=== PATIENT | male | born 1950 | race Caucasian/White ===

== ENCOUNTER 2017-08-28 04:16 | Emergency (ER) | payer MEDICARE, BC, OTHER ==
[2017-08-28] MEDS ORDERED: ONDANSETRON 4 MG/2 ML VIAL IVP STA (04:49)
[2017-08-28] MEDS ORDERED: MECLIZINE 12.5 MG TAB PO STA (05:07)
--- NOTE | 2017-08-28 05:15 | ED ---
Dizziness HPI - General Chief Complaint: Dizziness Stated Complaint: Dizzy, nausea Time Seen by Provider: 08/28/17 04:47 Source: patient Mode of arrival: ambulatory Limitations: no limitations - History of Present Illness MD Complaint: dizziness Onset/Timin -: days(s) Timing: gradual onset Description: "room spinning" History of Same: Yes History of Trauma: No Severity: moderate Improves With: nothing Worsens With: nothing Associated Symptoms: other (Nausea and vomiting) - Related Data Home Medications Medication Instructions Recorded Confirmed Calcium Carbonate/Vitamin D3 1 tab PO DAILY 09/04/14 02/24/16 [Calcium 600 + Vit D Tablet] Multivitamin [Men's Multi-Vitamin] 1 tab PO DAILY 09/04/14 02/24/16 Hyoscyamine Sulfate [Hyoscyamine 0.125 mg SL Q3-4H PRN 02/15/15 02/24/16 Sulfate SL] Melatonin 3 mg PO HS PRN 02/17/16 02/24/16 Timolol 0.5% Ophth Soln [Timoptic 1 drop BOTH EYES DAILY 02/17/16 02/24/16 0.5% Ophth Soln] Allergies Allergy/AdvReac Type Severity Reaction Status Date / Time smallpox vaccine,live Allergy Unknown Unknown Verified 08/28/17 04:21 Review of Systems ROS Statement: Those systems with pertinent positive or pertinent negative responses have been documented in the HPI. ROS Other: All systems not noted in ROS Statement are negative. Constitutional: Denies: fever, chills, weakness Eyes: Denies: vision change ENT: Reports: other (Patient states that it feels like his ear is plugged). Denies: hearing loss Respiratory: Denies: cough, dyspnea Cardiovascular: Denies: chest pain, palpitations, orthopnea, edema, syncope Gastrointestinal: Reports: nausea, vomiting. Denies: abdominal pain, hematemesis, melena, hematochezia Genitourinary: Denies: dysuria Musculoskeletal: Denies: back pain Skin: Denies: rash, change in color Neurological: Denies: headache, weakness Past Medical History Past Medical History: GERD/Reflux Additional Past Medical History / Comment(s): VARICOSE VEIN, STATES ELEVATED EYE PRESSURE, OCCASIONAL FUNGUS ON THIGH, HX OF ECZEMA, HAVING ABDOMINAL PAIN., TINNITIS. History of Any Multi-Drug Resistant Organisms: None Reported Past Surgical History: Appendectomy Additional Past Surgical History / Comment(s): biopsy Left axillary lymph node- cat scratch fever Past Anesthesia/Blood Transfusion Reactions: No Reported Reaction Past Psychological History: No Psychological Hx Reported Smoking Status: Former smoker Past Alcohol Use History: None Reported Past Drug Use History: None Reported - Past Family History Father Family Medical History: Unable to Obtain Mother Family Medical History: Cancer Additional Family Medical History / Comment(s): BREAST CANCER WITH METS. General Exam Limitations: no limitations General appearance: alert, in no apparent distress Head exam: Present: atraumatic, normocephalic Eye exam: Present: normal appearance, PERRL, EOMI. Absent: scleral icterus, conjunctival injection ENT exam: Present: normal oropharynx, TM's normal bilaterally, normal external ear exam Neck exam: Present: normal inspection Respiratory exam: Present: normal lung sounds bilaterally. Absent: respiratory distress, wheezes, rales, rhonchi, stridor Cardiovascular Exam: Present: normal rhythm, bradycardia (Rate approximately 56 at my exam), normal heart sounds. Absent: systolic murmur, diastolic murmur, rubs, gallop GI/Abdominal exam: Present: soft. Absent: distended, tenderness, guarding, rebound, rigid, mass, pulsatile mass Extremities exam: Present: normal inspection, normal capillary refill. Absent: pedal edema, calf tenderness Back exam: Present: normal inspection. Absent: CVA tenderness (R), CVA tenderness (L) Neurological exam: Present: alert Skin exam: Present: warm, dry, intact, normal color. Absent: rash Course Vital Signs 08/28/17 08/28/17 04:18 05:57 Temperature 97.7 F Pulse Rate 54 L 48 L Respiratory 20 17 Rate Blood Pressure 125/76 122/58 O2 Sat by Pulse 100 100 Oximetry EKG Findings - EKG Results: EKG: interpreted by ERMD, sinus rhythm, normal QRS, normal ST/T EKG shows: bradycardia (Rate 54 bpm) - Blocks, [place], Hypertrophy, ST Abn: QRS axis and voltage: left axis deviation (-30 to -90) Medical Decision Making - Lab Data Result diagrams: 08/28/17 04:43 08/28/17 04:43 Lab Results 08/28/17 08/28/17 08/28/17 Range/Units 04:43 04:43 04:43 WBC 6.1 (3.8-10.6) k/uL RBC 4.23 L (4.30-5.90) m/uL Hgb 13.7 (13.0-17.5) gm/dL Hct 40.0 (39.0-53.0) % MCV 94.5 (80.0-100.0) fL MCH 32.3 (25.0-35.0) pg MCHC 34.2 (31.0-37.0) g/dL RDW 13.2 (11.5-15.5) % Plt Count 224 (150-450) k/uL Neutrophils % 39 % Lymphocytes % 49 % Monocytes % 6 % Eosinophils % 3 % Basophils % 1 % Neutrophils # 2.4 (1.3-7.7) k/uL Lymphocytes # 3.0 (1.0-4.8) k/uL Monocytes # 0.4 (0-1.0) k/uL Eosinophils # 0.2 (0-0.7) k/uL Basophils # 0.0 (0-0.2) k/uL Sodium 136 L (137-145) mmol/L Potassium 3.9 (3.5-5.1) mmol/L Chloride 104 (98-107) mmol/L Carbon Dioxide 20 L (22-30) mmol/L Anion Gap 12 mmol/L BUN 13 (9-20) mg/dL Creatinine 0.70 (0.66-1.25) mg/dL Est GFR (CKD-EPI)AfAm >90 (>60 ml/min/1.73 sqM) Est GFR (CKD-EPI)NonAf >90 (>60 ml/min/1.73 sqM) Glucose 120 H (74-99) mg/dL Calcium 9.7 (8.4-10.2) mg/dL Total Bilirubin 0.5 (0.2-1.3) mg/dL AST 28 (17-59) U/L ALT 35 (21-72) U/L Alkaline Phosphatase 38 (38-126) U/L Troponin I <0.012 (0.000-0.034) ng/mL Total Protein 6.8 (6.3-8.2) g/dL Albumin 4.3 (3.5-5.0) g/dL Disposition Clinical Impression: Vertigo Disposition: HOME SELF-CARE Condition: Good Instructions: Dizziness (ED) Is patient prescribed a controlled substance at d/c from ED?: No Referrals: Dawit Hendrix MD [Primary Care Provider] - 1-2 days
[2017-08-28 05:38] LABS: Basophils % (A) 1 %; Eosinophils # (A) 0.2 k/uL (0-0.7); Eosinophils % (A) 3 %; HGB 13.7 gm/dL (13.0-17.5); Lymphocytes % (A) 49 %; MCH 32.3 pg (25.0-35.0); MCHC 34.2 g/dL (31.0-37.0); MCV 94.5 fL (80.0-100.0); Mean Platelet Volume 6.7; Monocytes # (A) 0.4 k/uL (0-1.0); Monocytes % (A) 6 %; Neutrophils # (A) 2.4 k/uL (1.3-7.7); Neutrophils % (A) 39 %; Platelet Count 224 k/uL (150-450); RBC 4.23 m/uL (4.30-5.90); RDW 13.2 % (11.5-15.5); WBC 6.1 k/uL (3.8-10.6)
[2017-08-28 05:47] LABS: Carbon Dioxide 20 mmol/L (22-30); Chloride 104 mmol/L (98-107); Glucose 120 mg/dL (74-99); Potassium 3.9 mmol/L (3.5-5.1); Sodium 136 mmol/L (137-145)
[2017-08-28 05:48] LABS: ALT 35 U/L (21-72); AST 28 U/L (17-59); Albumin 4.3 g/dL (3.5-5.0); Alkaline Phosphatase 38 U/L (38-126); Anion Gap 12 mmol/L; Blood Urea Nitrogen 13 mg/dL (9-20); Calcium 9.7 mg/dL (8.4-10.2); Total Bilirubin 0.5 mg/dL (0.2-1.3); Total Protein 6.8 g/dL (6.3-8.2)
--- NOTE | 2017-08-28 07:15 | CT ---
EXAM: CT Head Without Intravenous Contrast CLINICAL HISTORY: Pain TECHNIQUE: Axial computed tomography images of the head/brain without intravenous contrast. CTDI is 59.43 mGy and DLP is 1149.96 mGy-cm. This CT exam was performed using one or more of the following dose reduction techniques: automated exposure control, adjustment of the mA and/or kV according to patient size, and/or use of iterative reconstruction technique. COMPARISON: No relevant prior studies available. FINDINGS: Brain: Minimal cerebral involutional changes noted. No hemorrhage. No significant white matter disease. Ventricles: Unremarkable. No ventriculomegaly. Bones/joints: Unremarkable. No acute fracture. Soft tissues: Unremarkable. Sinuses: Unremarkable as visualized. No acute sinusitis. Mastoid air cells: Unremarkable as visualized. No mastoid effusion. IMPRESSION: No acute intracranial process identified.
--- NOTE | 2017-08-28 07:42 | ED ---
Medical Decision Making - Lab Data Result diagrams: 08/28/17 04:43 08/28/17 04:43 Lab Results 08/28/17 08/28/17 08/28/17 Range/Units 04:43 04:43 04:43 WBC 6.1 (3.8-10.6) k/uL RBC 4.23 L (4.30-5.90) m/uL Hgb 13.7 (13.0-17.5) gm/dL Hct 40.0 (39.0-53.0) % MCV 94.5 (80.0-100.0) fL MCH 32.3 (25.0-35.0) pg MCHC 34.2 (31.0-37.0) g/dL RDW 13.2 (11.5-15.5) % Plt Count 224 (150-450) k/uL Neutrophils % 39 % Lymphocytes % 49 % Monocytes % 6 % Eosinophils % 3 % Basophils % 1 % Neutrophils # 2.4 (1.3-7.7) k/uL Lymphocytes # 3.0 (1.0-4.8) k/uL Monocytes # 0.4 (0-1.0) k/uL Eosinophils # 0.2 (0-0.7) k/uL Basophils # 0.0 (0-0.2) k/uL Sodium 136 L (137-145) mmol/L Potassium 3.9 (3.5-5.1) mmol/L Chloride 104 (98-107) mmol/L Carbon Dioxide 20 L (22-30) mmol/L Anion Gap 12 mmol/L BUN 13 (9-20) mg/dL Creatinine 0.70 (0.66-1.25) mg/dL Est GFR (CKD-EPI)AfAm >90 (>60 ml/min/1.73 sqM) Est GFR (CKD-EPI)NonAf >90 (>60 ml/min/1.73 sqM) Glucose 120 H (74-99) mg/dL Calcium 9.7 (8.4-10.2) mg/dL Total Bilirubin 0.5 (0.2-1.3) mg/dL AST 28 (17-59) U/L ALT 35 (21-72) U/L Alkaline Phosphatase 38 (38-126) U/L Troponin I <0.012 (0.000-0.034) ng/mL Total Protein 6.8 (6.3-8.2) g/dL Albumin 4.3 (3.5-5.0) g/dL Disposition Clinical Impression: Vertigo Disposition: HOME SELF-CARE Condition: Good Instructions: Dizziness (ED) Prescriptions: Meclizine [Antivert] 25 mg PO TID #20 tab Is patient prescribed a controlled substance at d/c from ED?: No Referrals: Dawit Hendrix MD [Primary Care Provider] - 1-2 days
[2017-08-28 07:50] VITALS: BP 112/65; PULSE 63; RESP 16; TEMP 98
== END 2017-08-28 07:49 | disposition home or self-care (01) ==
LOC: EC 04:16
DX: R42 Dizziness and giddiness (principal); R11.2 Nausea with vomiting, unspecified; Z87.891 Personal history of nicotine dependence; Z79.899 Other long term (current) drug therapy; Z88.7 Allergy status to serum and vaccine
CPT/HCPCS: 36415; 93005; 80053; 84484; 85025; 70450; 99284; 96374; J2405

== ENCOUNTER 2018-02-06 07:11 | Day surgery (SDC) | payer MEDICARE, OTHER, BC ==
[~2018-02-06 07:11] MED LIST: LACTATED RINGERS 1,000 ML IV SCH; LIDOCAINE 1% 20 ML VIAL (10MG/ML) FOR IV START INTRADERMA PRN
[2018-02-06 07:34] VITALS: RESP 16; TEMP 97.8
[2018-02-06] MEDS ORDERED: PROPOFOL 10 MG/ML 20 ML VIAL IV ONE (08:39)
--- NOTE | 2018-02-06 09:15 | P.PCN ---
Date of Procedure: 02/06/18 Procedure(s) Performed: BRIEF HISTORY: Patient is a 67-year-old pleasant male, scheduled for an elective colonoscopy as a part of evaluation of prior history of colon polyps. Last endoscopy in January 2016 showed a broad-based polyp on the ileocecal valve was removed by snare polypectomy/APC. He scheduled for a surveillance colonoscopy today. PROCEDURE PERFORMED: Colonoscopy with snare polypectomy and argon plasma coagulation. PREOPERATIVE DIAGNOSIS: Follow-up ileocecal valve polyp. IV sedation per Anesthesia. PROCEDURE: After informed consent was obtained, the patient, was brought into the endoscopy unit. IV sedation was administered by Anesthesia under continuous monitoring. Digital rectal examination was normal. Initially the Olympus CF- 160 flexible video colonoscope was then inserted in the rectum, gradually advanced into the cecum without any difficulty. Careful examination was performed as the scope was gradually being withdrawn. Ileocecal valve and the appendiceal orifice were visualized and appeared normal. Prep was excellent. On the ileocecal valve there was a 2 cm flat residual linear polyp identified which was removed by snare polypectomy followed by argon plasma coagulation. Mucosa of the cecum, ascending colon, transverse colon, descending colon, sigmoid colon, and rectum appeared normal. Retroflexion was performed in the rectum and no lesions were seen. The patient tolerated the procedure well. IMPRESSION: 2 cm linear severe flat polyp on the ileocecal valve status post snare polypectomy and argon plasma coagulation Rest of the colon appeared normal. RECOMMENDATIONS: Findings of this examination were discussed with the patient is well as his family. He will follow with the biopsy results and he will be seen in the office in 2 weeks.
[2018-02-06 09:32] VITALS: BP 123/81; PULSE 63
== END 2018-02-06 10:06 | disposition home or self-care (01) ==
LOC: ORWHC2ENDO 07:11
PROVIDERS: ATTEND Internal Medicine Gastroenterology
DX: Z12.11 Encounter for screening for malignant neoplasm of colon (principal); K63.5 Polyp of colon; Z86.010 Personal history of colon polyps; I10 Essential (primary) hypertension; H40.9 Unspecified glaucoma; K21.9 Gastro-esophageal reflux disease without esophagitis; Z79.899 Other long term (current) drug therapy; Z88.7 Allergy status to serum and vaccine
CPT/HCPCS: 88305; 45385; J2704; 45382

== ENCOUNTER → 2019-01-29 | Outpatient (CLI) | payer MEDICARE, OTHER, BC ==
[2019-01-29 11:15] LABS: HCT 42.6 % (39.0-53.0); HGB 14.8 gm/dL (13.0-17.5); MCH 32.8 pg (25.0-35.0); MCHC 34.7 g/dL (31.0-37.0); MCV 94.6 fL (80.0-100.0); Mean Platelet Volume 6.1; Platelet Count 263 k/uL (150-450); RDW 12.5 % (11.5-15.5); WBC 5.2 k/uL (3.8-10.6)
[2019-01-29 11:43] LABS: Potassium 4.1 mmol/L (3.5-5.1)
== END | disposition home or self-care (01) ==
LOC: LABPAT 09:10
PROVIDERS: ATTEND Surgery
DX: Z01.812 Encounter for preprocedural laboratory examination (principal); K63.5 Polyp of colon
CPT/HCPCS: 36415; 80051; 85027; 86850; 86900; 86901; 93005

== ENCOUNTER 2019-02-04 10:31 | Inpatient (IN) | payer MEDICARE, OTHER, BC ==
[2019-01-31 12:47] VITALS: BMI 23.7
[~2019-02-04 10:31] MED LIST changes: +ALVIMOPAN 12 MG CAPSULE PO ONE; +DEXAMETHASONE SOD PHOSPHATE 10 MG/ML 1 ML VIAL IV ONE; -LACTATED RINGERS 1,000 ML IV SCH; +ONDANSETRON 4 MG/2 ML VIAL IVP ONE; +Pre Op ABX Message 1 EACH MISC MISCELLANE ONE; +metroNIDAZOLE-NS PMX 500 MG in SALINE 1 100ML.BAG IVPB ONE
[2019-02-04] MEDS: LACTATED RINGERS 1,000 ML IV SCH (11:27)
--- NOTE | 2019-02-04 11:47 | P.GSHP ---
History of Present Illness H&P Date: 02/04/19 Chief Complaint: Colon polyp Patient here today for elective partial colectomy. Patient well known to our service. Patient was sent to [facility] for endoscopic mucosal resection of a polyp seen at the ileocecal valve. Patient had more than 1 endoscopic resection. Recent repeat colonoscopy showed persistent polypoid formation with induration at the base of the polyp. Biopsies are showing fragments of tubular adenoma. Patient otherwise asymptomatic. History of previous appendectomy. Given the induration and the recurrent nature of this polyp surgical resection was advised by GI. Denies rectal bleeding. Past Medical History Past Medical History: Eye Disorder, GERD/Reflux, Hearing Disorder / Deafness, Hypertension Additional Past Medical History / Comment(s): Varicose Vein. Elevated eye pressure - pre-glaucoma, HX OF Eczema. Tinnitis, Vertigo, meniere's, hx fluid lt ear. Hx Colon polyps. Occ abd pain History of Any Multi-Drug Resistant Organisms: None Reported Past Surgical History: Appendectomy Additional Past Surgical History / Comment(s): biopsy Left axillary lymph node- cat scratch fever. Colonoscopies, EGD. Past Anesthesia/Blood Transfusion Reactions: No Reported Reaction Smoking Status: Former smoker - Past Family History Father Family Medical History: Unable to Obtain Mother Family Medical History: Cancer Additional Family Medical History / Comment(s): BREAST CANCER WITH METS. Medications and Allergies Home Medications Medication Instructions Recorded Confirmed Type Hyoscyamine Sulfate [Hyoscyamine 0.125 mg SL Q4H PRN 02/15/15 02/04/19 History Sulfate SL] Cholecalciferol [Vitamin D3] 5,000 unit PO DAILY 02/04/18 01/31/19 History Latanoprost Ophth [Xalatan 0.005%] 1 drop BOTH EYES HS 02/04/18 02/04/19 History Triamterene/Hydrochlorothiazid 1 tab PO QAM 02/04/18 02/04/19 History [Triamterene-Hctz 37.5-25 mg Tb] Allergies Allergy/AdvReac Type Severity Reaction Status Date / Time smallpox vaccine,live Allergy Unknown Unknown Verified 01/31/19 12:05 Surgical - Exam Vital Signs Temp Pulse Resp BP Pulse Ox 97.9 F 62 18 152/79 99 02/04/19 11:10 02/04/19 11:10 02/04/19 11:10 12/10/19 11:10 02/04/19 11:10 Physical exam: General: Well-developed, well-nourished HEENT: Normocephalic, sclerae nonicteric Abdomen: Nontender, nondistended Extremities: No edema Neuro: Alert and oriented Assessment and Plan (1) Adenomatous colon polyp Narrative/Plan: 68-year-old male with recurrent adenomatous polyp at the ileocecal valve. Cannot rule out underlying malignancy. We'll proceed with laparoscopic da Gemma assisted partial right colectomy. Risks of bleeding infection and leak abscess stricture duodenal and ureteral injury hernia conversion to an open procedure reviewed. He understands and wishes to proceed. Current Visit: Yes Status: Acute Code(s): D12.6 - BENIGN NEOPLASM OF COLON, UNSPECIFIED SNOMED Code(s): 192975069
[2019-02-04] MEDS: fentaNYL (PF) 50 MCG/ML 2 ML AMP IVP ONE ×3 (12:04→17:30)
[2019-02-04] MEDS ORDERED: fentaNYL (PF) 50 MCG/ML 2 ML AMP IVP ONE (12:04)
[2019-02-04] MEDS ORDERED: MIDAZOLAM 2 MG/2 ML VIAL IVP ONE ×2 (12:04)
[2019-02-04] MEDS ORDERED: HEPARIN SODIUM,PORCINE 5,000 UNIT/ML 1 ML VIAL SQ ONE (12:16)
[2019-02-04] MEDS ORDERED: LACTATED RINGERS 1,000 ML IV ONE ×3 (12:48→16:13)
[2019-02-04] MEDS ORDERED: BUPIVACAIN-EPI 0.25%-1:200,000 30 ML VIAL SQ ONE ×2 (12:51→13:07)
--- NOTE | 2019-02-04 13:38 | P.ANPRN ---
Procedure Note - Anesthesia - Nerve Block Performed Bilateral Transversus Abdominis Single Time Out Performed: Yes Date of Procedure: 02/04/19 Procedure Start Time: 12:04 Procedure Stop Time: 12:14 Location of Patient: PreOp Indication: Acute Post-Operative Pain, Requested by Surgeon Sedation Type: Sedate with meaningful contact maintained Preparation: Sterile Prep Position: Supine Catheter: None Needle Types: Pajunk Needle Gauge: 21 Ultrasound used to visualize needle placement: Yes Ultrasound used to observe medication spread: Yes Injectate: Other (see comment) (0.375% ropivacaine + decadron 4mg-- per side) Blood Aspirated: No Pain Paresthesia on Injection Noted: No Resistance on Injection: Normal Image Stored and Saved: Yes Events: Uneventful and Well Tolerated
[2019-02-04] MEDS ORDERED: METOCLOPRAMIDE 5 MG/ML 2 ML VIAL IVP PRN (17:02)
[2019-02-04] MEDS ORDERED: BENZOCAINE/MENTHOL LOZENG 1 EACH LOZENGE MUCOUS MEM PRN (17:02)
[2019-02-04] MEDS ORDERED: ONDANSETRON 4 MG/2 ML VIAL IVP PRN (17:02)
[2019-02-04] MEDS: HYDROmorphone 0.5 MG/0.5 ML SYRINGE IVP PRN ×4 (17:16→18:44)
[2019-02-04 19:39] LABS: Basophils % (A) 0 %; Eosinophils # (A) 0.1 k/uL (0-0.7); Eosinophils % (A) 1 %; HCT 38.5 % (39.0-53.0); HGB 13.4 gm/dL (13.0-17.5); Lymphocytes # (A) 0.5 k/uL (1.0-4.8); Lymphocytes % (A) 4 %; MCH 32.8 pg (25.0-35.0); MCHC 34.7 g/dL (31.0-37.0); MCV 94.4 fL (80.0-100.0); Mean Platelet Volume 7.9; Monocytes # (A) 0.3 k/uL (0-1.0); Monocytes % (A) 3 %; Neutrophils # (A) 10.9 k/uL (1.3-7.7); Neutrophils % (A) 93 %; Platelet Count 250 k/uL (150-450); RBC 4.08 m/uL (4.30-5.90); RDW 12.7 % (11.5-15.5); WBC 11.7 k/uL (3.8-10.6)
[2019-02-04 19:58] LABS: African American GFR (CKD) >90 (>60 ml/min/1.73 sqM); Anion Gap 8 mmol/L; Blood Urea Nitrogen 9 mg/dL (9-20); Carbon Dioxide 27 mmol/L (22-30); Chloride 100 mmol/L (98-107); Glucose 155 mg/dL (74-99); Non-African American GFR(CKD) >90 (>60 ml/min/1.73 sqM); Potassium 3.1 mmol/L (3.5-5.1); Sodium 135 mmol/L (137-145)
[2019-02-04] MEDS ORDERED: Potassium Replacement Protocol 1 EACH MISC MISCELLANE PRN (20:25)
[2019-02-04] MEDS: HYDROmorphone 1 MG/ML 1 ML SYRINGE IVP PRN (21:57)
[2019-02-04] MEDS: POTASSIUM CHLORIDE 10 MEQ in WATER FOR INJECTION 1 100ML.BAG IVPB SCH ×2 (22:02→23:34)
[2019-02-05] MEDS: POTASSIUM CHLORIDE 10 MEQ in WATER FOR INJECTION 1 100ML.BAG IVPB SCH ×2 (01:08→03:03)
[2019-02-05] MEDS: HYDROmorphone 1 MG/ML 1 ML SYRINGE IVP PRN (03:47)
[2019-02-05] MEDS: D5-0.45% NACL WITH KCL 20MEQ/L 1,000 ML IV SCH ×4 (05:22→19:48)
[2019-02-05 07:07] LABS: Basophils % (A) 0 %; Eosinophils # (A) 0.1 k/uL (0-0.7); Eosinophils % (A) 1 %; HCT 36.6 % (39.0-53.0); HGB 12.4 gm/dL (13.0-17.5); Lymphocytes % (A) 9 %; MCH 31.8 pg (25.0-35.0); MCHC 33.8 g/dL (31.0-37.0); Mean Platelet Volume 7.4; Monocytes # (A) 0.7 k/uL (0-1.0); Monocytes % (A) 6 %; Neutrophils # (A) 9.1 k/uL (1.3-7.7); Neutrophils % (A) 83 %; Platelet Count 204 k/uL (150-450); RBC 3.89 m/uL (4.30-5.90); RDW 12.4 % (11.5-15.5)
[2019-02-05 07:17] LABS: African American GFR (CKD) >90 (>60 ml/min/1.73 sqM); Anion Gap 6 mmol/L; Blood Urea Nitrogen 9 mg/dL (9-20); Carbon Dioxide 28 mmol/L (22-30); Chloride 100 mmol/L (98-107); Glucose 154 mg/dL (74-99); Non-African American GFR(CKD) >90 (>60 ml/min/1.73 sqM); Potassium 3.9 mmol/L (3.5-5.1); Sodium 134 mmol/L (137-145)
[2019-02-05] MEDS: ALVIMOPAN 12 MG CAPSULE PO SCH ×3 (07:48→19:49)
[2019-02-05] MEDS: FAMOTIDINE 20 MG/2 ML VIAL IV SCH ×3 (07:48→19:50)
[2019-02-05] MEDS: HEPARIN SODIUM,PORCINE 5,000 UNIT/ML 1 ML VIAL SQ SCH ×4 (07:50→23:59)
[2019-02-05] MEDS: LACTATED RINGERS 1,000 ML IV SCH (07:50)
--- NOTE | 2019-02-05 11:11 | P.PN ---
<Shaniqua Chaidez Vinh - Last Filed: 02/05/19 11:35> Subjective Progress Note Date: 02/05/19 CHIEF COMPLAINT: colon polyp HISTORY OF PRESENT ILLNESS: Patient is s/p laparoscopic partial right colectomy. POD #1. Patient examined at the bedside. He reports abdominal pain is tolerable. Tolerating clear liquid diet. Denies nausea or vomiting. Denies passing flatus. Vital signs stable. He is afebrile. PHYSICAL EXAM: VITAL SIGNS: Reviewed. GENERAL: Well-developed in no acute distress. HEENT: No sclera icterus. Extraocular movements grossly intact. Moist buccal mucosa. Head is atraumatic, normocephalic. ABDOMEN: Soft. Nondistended. Appropriate surgical tenderness. Incision sites clean dry intact. NEUROLOGIC: Alert and oriented. Cranial nerves II through XII grossly intact. ASSESSMENT: 1. Recurrent adenomatous colon polyp PLAN: -Advance diet to full liquid diet. Await bowel function -Pain control -Increase activity as tolerated -IS 10 times an hour -Discontinue ulrich catheter Nurse practitioner note has been reviewed by physician. Signing provider agrees with the documented findings, assessment, and plan of care. Objective - Vital Signs Vital signs: Vital Signs Temp 98.3 F 02/05/19 07:00 Pulse 84 02/05/19 07:00 Resp 18 02/05/19 07:00 BP 117/66 02/05/19 07:00 Pulse Ox 97 02/05/19 09:34 Intake & Output 02/04/19 02/05/19 02/05/19 18:59 06:59 18:59 Intake Total 4000 Output Total 1185 3600 Balance 2815 -3600 Weight 79.379 kg Intake: IV 4000 Output: Urine 1165 3600 Uretheral (Ulrich) 1800 Estimated Blood Loss 20 Other: Voiding Method Indwelling Catheter Indwelling Catheter - Labs CBC & Chem 7: 02/05/19 06:51 02/05/19 06:51 Labs: Abnormal Lab Results - Last 24 Hours (Table) 02/04/19 02/04/19 02/05/19 Range/Units 19:00 19:00 06:51 WBC 11.7 H 11.0 H (3.8-10.6) k/uL RBC 4.08 L 3.89 L (4.30-5.90) m/uL Hgb 12.4 L (13.0-17.5) gm/dL Hct 38.5 L 36.6 L (39.0-53.0) % Neutrophils # 10.9 H 9.1 H (1.3-7.7) k/uL Lymphocytes # 0.5 L (1.0-4.8) k/uL Sodium 135 L (137-145) mmol/L Potassium 3.1 L (3.5-5.1) mmol/L Creatinine 0.63 L (0.66-1.25) mg/dL Glucose 155 H (74-99) mg/dL 02/05/19 Range/Units 06:51 WBC (3.8-10.6) k/uL RBC (4.30-5.90) m/uL Hgb (13.0-17.5) gm/dL Hct (39.0-53.0) % Neutrophils # (1.3-7.7) k/uL Lymphocytes # (1.0-4.8) k/uL Sodium 134 L (137-145) mmol/L Potassium (3.5-5.1) mmol/L Creatinine 0.62 L (0.66-1.25) mg/dL Glucose 154 H (74-99) mg/dL <Brayan Obando - Last Filed: 02/05/19 11:40> Subjective As above. Patient doing well. Pain is well controlled currently. No nausea or vomiting. No flatus or bowel movement. Vitals are stable. White blood cell count 11. Increase diet to full liquids. Ambulate. Remove Ulrich catheter. Objective - Vital Signs Vital signs: Vital Signs Temp 98.3 F 02/05/19 07:00 Pulse 84 02/05/19 07:00 Resp 18 02/05/19 07:00 BP 117/66 02/05/19 07:00 Pulse Ox 97 02/05/19 09:34 Intake & Output 02/04/19 02/05/19 02/05/19 18:59 06:59 18:59 Intake Total 4000 Output Total 1185 3600 Balance 2815 -3600 Weight 79.379 kg Intake: IV 4000 Output: Urine 1165 3600 Uretheral (Ulrich) 1800 Estimated Blood Loss 20 Other: Voiding Method Indwelling Catheter Indwelling Catheter - Labs CBC & Chem 7: 02/05/19 06:51 02/05/19 06:51 Labs: Abnormal Lab Results - Last 24 Hours (Table) 02/04/19 02/04/19 02/05/19 Range/Units 19:00 19:00 06:51 WBC 11.7 H 11.0 H (3.8-10.6) k/uL RBC 4.08 L 3.89 L (4.30-5.90) m/uL Hgb 12.4 L (13.0-17.5) gm/dL Hct 38.5 L 36.6 L (39.0-53.0) % Neutrophils # 10.9 H 9.1 H (1.3-7.7) k/uL Lymphocytes # 0.5 L (1.0-4.8) k/uL Sodium 135 L (137-145) mmol/L Potassium 3.1 L (3.5-5.1) mmol/L Creatinine 0.63 L (0.66-1.25) mg/dL Glucose 155 H (74-99) mg/dL 02/05/19 Range/Units 06:51 WBC (3.8-10.6) k/uL RBC (4.30-5.90) m/uL Hgb (13.0-17.5) gm/dL Hct (39.0-53.0) % Neutrophils # (1.3-7.7) k/uL Lymphocytes # (1.0-4.8) k/uL Sodium 134 L (137-145) mmol/L Potassium (3.5-5.1) mmol/L Creatinine 0.62 L (0.66-1.25) mg/dL Glucose 154 H (74-99) mg/dL Assessment and Plan (1) Adenomatous colon polyp Current Visit: Yes Status: Acute Code(s): D12.6 - BENIGN NEOPLASM OF COLON, UNSPECIFIED SNOMED Code(s): 503963099
--- NOTE | 2019-02-05 11:48 | P.OP ---
Date of Procedure: 02/05/19 Procedure(s) Performed: PREOPERATIVE DIAGNOSIS: Right-sided colon polyp POSTOPERATIVE DIAGNOSIS: Same PROCEDURE: Laparoscopic da Gemma assisted right colectomy with intracorporeal anastomosis SURGEON: Topher EBL: 25 mL ANESTHESIA: General COMPLICATIONS: None OPERATIVE PROCEDURE: Patient was placed on the operating table in the supine position. The patient was placed under general anesthesia. A Mauricio catheter was placed. The patient's arms were tucked. The abdomen was prepped and draped in usual sterile fashion. A small Pfannenstiel incision was created in the midline. The subcutaneous fat and fascia were divided horizontally using electrocautery. The rectus muscle was divided vertically using blunt dissection and entrance into the peritoneal cavity occurred. The [place] lap cap was placed. Through the GelPort adapter of the [place] a 12 mm robotic port and a 12 mm assist port were placed. Full insufflation took place to 15 mmHg. 3 additional trochars were placed for the robot a 12 mm in the left subcostal a 8 mm in the left lateral infraumbilical and a 8 mm trocar in the left lower q uadrant location. An additional 5 mm trocar was placed in the lateral left abdomen for an starch treating assistant port. The patient was placed in Trendelenburg right side up. The liver was free of any evidence of distant metastasis. The retroperitoneum was evaluated. The ileocolic pedicle was identified by retracting the cecum anteriorly and laterally. Careful dissection using both blunt dissection and cautery took place in the retroperitoneum. The duodenum was quickly identified and this was protected throughout the remainder of the procedure. Our dissection took place laterally and circumferentially around the ileocolic pedicle. The ileocolic pedicle was divided using a 45 white load stapler. At the end of the procedure I inspected the ileocolic pedicle to identify a small area of bleeding. This was was controlled using a 12 mm ligaclip. No further bleeding was seen at that point. Retroperitoneal dissection then took place from medial to lateral. The course of the ureter was identified and avoided. Once we reached the lateral abdomen from our retroperitoneal approach the ileum cecum and ascending colon were mobilized by incising the lateral peritoneal attachments. We entered into a retroperitoneal dissection plane. The hepatic flexure was mobilized in a similar fashion although in that location we started using the vessel sealer. It should be noted that in this case the patient's hepatic flexure was quite high and fairly lateral. This added some time to the procedure and trying to mobilize that area. The gastrocolic omentum was dissected away from the proximal transverse colon. Once we were able to visualize the transverse colon and hepatic flexure well the proximal transverse colon was divided using a blue load 45 stapler x2. The mesentery of the transverse colon was then divided using a combination of the vessel sealer and also the white load vascular 45 stapler. The small bowel was divided as well using a robotic blue load stapler. At this point our s pecimen was free and placed in the left upper quadrant. The terminal ileum was brought in an isoperistaltic manner adjacent to the transverse colon. 2 separate 3-0 GI silk stay sutures were placed proximally and distally. Small enterotomy and colotomy took place. At that time stapler was fired along the antimesenteric border of both the small bowel and the colon. 2 separate firings of the 45 blue load stapler were utilized. We had an adequate opening between the small bowel and colon at that point. The defect was closed transversely using a running full-thickness 20V lock suture. Once the defect was closed I used a running horizontal mattress Lambert suture along the length of the staple line in order to imbricate that area. The previously placed 3-0 GI silk sutures acted as stay sutures proximally and distally. The specimen was grasped through the [place] assist port and the pneumoperitoneum was evacuated. The specimen was able to be retrieved quite easily. The fascia was closed using a running 1 Vicryl suture. The 12 mm trocar site fascia was closed using a [id number] 0 Vicryl suture. The subcutaneous tissues were irrigated with saline. The subcutaneous tissues were closed using 3-0 Vicryl sutures. The skin at all locations were closed using 4-0 Monocryl sutures. Dermabond was then utilized. DISPOSITION: Stable to recovery room
[2019-02-05] MEDS: KETOROLAC 30 MG/ML 1 ML VIAL IVP PRN ×2 (12:05→18:42)
--- NOTE | 2019-02-05 13:27 | P.CONS ---
History of Present Illness - Reason for Consult Consult date: 02/05/19 Medical management - History of Present Illness This is a 68-year-old male patient of Dr. Hendrix. with past medical history of hypertension,, Mnire's, gastroesophageal reflux disease. Patient recently seen at [facility] below for endoscopic mucosal resection of a polyp seen at the ileocecal valve. Patient had more than 1 endoscopic resection. Recent repeat colonoscopy showed persistent polypoid formation with induration at the base of the polyp. Biopsies are showing fragments of tubular adenoma. Patient has been brought in electively under Dr. Obando and underwent laparoscopic da Gemma assisted right colectomy with intracorporeal anastomosis. Patient is seen on postop day #1. Patient states that he did not sleep well due to pain and multiple interruptions. He is currently tolerating a liquid diet without nausea and vomiting. Abdominal pain is controlled. His Mauricio catheter was removed this morning. No bowel movement. He is reaching 3000 ML's on incentive spirometry. PT evaluation will be added. Review of Systems Constitutional: Denies chills, Denies fatigue, Denies fever, Denies poor appetite Eyes: denies blurred vision, denies pain Ears, nose, mouth and throat: Denies headache, Denies nasal congestion, Denies nasal discharge, Denies sore throat, Denies vertigo Cardiovascular: Denies chest pain, Denies decreased exercise tolerance, Denies dyspnea on exertion, Denies edema, Denies irregular heart beat, Denies leg edema, Denies lightheadedness, Denies shortness of breath, Denies syncope Respiratory: Denies cough, Denies cough with sputum, Denies dyspnea, Denies excessive sputum, Denies home oxygen, Denies wheezing Gastrointestinal: Reports abdominal pain, Denies diarrhea, Denies loss of appetite, Denies nausea, Denies vomiting Genitourinary: Denies dysuria, Denies urinary retention Musculoskeletal: Denies frequent falls, Denies gait dysfunction, Denies myalgias Integumentary: Denies pruritus, Denies rash Neurological: Denies change in mentation, Denies change in speech, Denies numbness, Denies weakness Psychiatric: Denies anxiety, Denies depression Endocrine: Denies fatigue, Denies weight change Past Medical History Past Medical History: Eye Disorder, GERD/Reflux, Hearing Disorder / Deafness, Hypertension Additional Past Medical History / Comment(s): Varicose Vein. Elevated eye pressure - pre-glaucoma, HX OF Eczema. Tinnitis, Vertigo, meniere's, hx fluid lt ear. Hx Colon polyps. Occ abd pain History of Any Multi-Drug Resistant Organisms: None Reported Past Surgical History: Appendectomy Additional Past Surgical History / Comment(s): biopsy Left axillary lymph node- cat scratch fever. Colonoscopies, EGD. Laparoscopic da Gemma assisted right colectomy Past Anesthesia/Blood Transfusion Reactions: No Reported Reaction Past Psychological History: No Psychological Hx Reported Smoking Status: Former smoker Past Alcohol Use History: None Reported Additional Past Alcohol Use History / Comment(s): QUIT SMOKING APRIL 1986. SMOKED 20 YEARS APPROX 1 PPD. Quit Alcohol 1985 Past Drug Use History: None Reported - Past Family History Father Family Medical History: Unable to Obtain Additional Family Medical History / Comment(s): Father is alive at age 96 with n o major medical problems. Mother Family Medical History: Cancer Additional Family Medical History / Comment(s): Mother at age 80 from BREAS T CANCER WITH METS. Brother(s) Additional Family Medical History / Comment(s): Patient has 1 brother and does not know any of his past medical history. Patient has 2 half-sisters and does not know their medical history. Daughter(s) Additional Family Medical History / Comment(s): Patient has 2 daughters and one has celiac disease, one has anxiety and gastroesophageal reflux disease. Patient does not have any sons. Medications and Allergies Home Medications Medication Instructions Recorded Confirmed Type Hyoscyamine Sulfate [Hyoscyamine 0.125 mg SL Q4H PRN 02/15/15 02/04/19 History Sulfate SL] Cholecalciferol [Vitamin D3] 5,000 unit PO DAILY 02/04/18 01/31/19 History Latanoprost Ophth [Xalatan 0.005%] 1 drop BOTH EYES HS 02/04/18 02/04/19 History Triamterene/Hydrochlorothiazid 1 tab PO QAM 02/04/18 02/04/19 History [Triamterene-Hctz 37.5-25 mg Tb] Allergies Allergy/AdvReac Type Severity Reaction Status Date / Time smallpox vaccine,live Allergy Unknown Unknown Verified 01/31/19 12:05 Physical Exam Vitals: Vital Signs Temp Pulse Pulse Resp BP Pulse Ox 02/05/19 09:34 97 02/05/19 07:00 98.3 F 84 18 117/66 96 02/05/19 01:43 98.4 F 97 18 139/79 97 02/04/19 21:15 92 155/75 98 02/04/19 21:00 91 134/69 97 02/04/19 20:45 89 135/67 97 02/04/19 20:30 87 144/66 97 02/04/19 20:15 97.8 F 93 147/75 96 02/04/19 20:03 98.6 F 99 20 137/81 99 02/04/19 20:00 74 117/62 97 02/04/19 19:45 78 113/63 98 02/04/19 19:30 84 97 02/04/19 19:15 98.0 F 83 17 117/63 99 02/04/19 18:31 74 16 138/68 96 02/04/19 18:01 77 18 141/68 98 02/04/19 17:46 86 16 156/72 97 02/04/19 17:31 76 18 140/65 96 02/04/19 17:16 98 18 147/77 99 02/04/19 17:01 82 16 137/72 99 02/04/19 16:45 98.1 F 93 15 137/72 98 02/04/19 11:10 97.9 F 62 18 152/79 99 Intake and Output 02/04/19 02/05/19 02/05/19 22:59 06:59 14:59 Intake Total 1950 Output Total 1185 Balance 765 Intake: IV 1950 Output: Urine 1165 Estimated Blood Loss 20 Other: Voiding Method Indwelling Catheter Weight 79.379 kg Gen: This is a 68-year-old male. Patient is resting in bed and appears to be comfortable and in no acute distress. HEENT: Head is atraumatic, normocephalic. Pupils equal, round. Sclerae is anicteric. NECK: Supple. No JVD. No lymphadenopathy. No thyromegaly. LUNGS: Clear to auscultation. No wheezes or rhonchi. No intercostal retractions. HEART: Regular rate and rhythm. No murmur. ABDOMEN: Soft. Bowel sounds are present. No masses. Mild generalized tenderness. Small surgical wounds with no signs of infection. EXTREMITIES: No pedal edema. No calf tenderness. Dorsalis pedis +2 bilaterally. NEUROLOGICAL: Patient is awake, alert and oriented x3. Cranial nerves 2 through 12 are grossly intact. Results CBC & Chem 7: 02/05/19 06:51 02/05/19 06:51 Labs: Abnormal Lab Results - Last 24 Hours (Table) 02/04/19 02/04/19 02/05/19 Range/Units 19:00 19:00 06:51 WBC 11.7 H 11.0 H (3.8-10.6) k/uL RBC 4.08 L 3.89 L (4.30-5.90) m/uL Hgb 12.4 L (13.0-17.5) gm/dL Hct 38.5 L 36.6 L (39.0-53.0) % Neutrophils # 10.9 H 9.1 H (1.3-7.7) k/uL Lymphocytes # 0.5 L (1.0-4.8) k/uL Sodium 135 L (137-145) mmol/L Potassium 3.1 L (3.5-5.1) mmol/L Creatinine 0.63 L (0.66-1.25) mg/dL Glucose 155 H (74-99) mg/dL 02/05/19 Range/Units 06:51 WBC (3.8-10.6) k/uL RBC (4.30-5.90) m/uL Hgb (13.0-17.5) gm/dL Hct (39.0-53.0) % Neutrophils # (1.3-7.7) k/uL Lymphocytes # (1.0-4.8) k/uL Sodium 134 L (137-145) mmol/L Potassium (3.5-5.1) mmol/L Creatinine 0.62 L (0.66-1.25) mg/dL Glucose 154 H (74-99) mg/dL Assessment and Plan Plan: 1. Tubular adenoma status post laparoscopic da Gemma assisted right colectomy with intracorporeal anastomosis. Patient is certainly on a clear liquid diet. Continue incentive spirometry to reduce incidence of atelectasis and hospital- acquired pneumonia. Patient is on Entereg. 2. Hypertension. Resume Maxide 25 tomorrow with parameters. 3. Mnire's, stable. 4. Gastroesophageal reflux disease. Pepcid 20 mg IV twice daily. 5. Glaucoma. Continue eyedrops. 6. DVT prophylaxis. Heparin subcu. Discharge plan: Most likely return home on Sunday. PT will be added to assess for home care need. Impression and plan of care have been directed as dictated by the signing physician. Nerissa Moreno nurse practitioner acting as scribe for signing physician.
[2019-02-05] MEDS: LATANOPROST 0.005% OPHTH DROPS 2.5 ML BTL BOTH EYES SCH (19:50)
[2019-02-06] MEDS: KETOROLAC 30 MG/ML 1 ML VIAL IVP PRN ×3 (03:06→21:12)
[2019-02-06] MEDS: D5-0.45% NACL WITH KCL 20MEQ/L 1,000 ML IV SCH ×4 (03:06→23:31)
[2019-02-06] MEDS: LACTATED RINGERS 1,000 ML IV SCH (07:11)
[2019-02-06] MEDS: HEPARIN SODIUM,PORCINE 5,000 UNIT/ML 1 ML VIAL SQ SCH ×3 (09:03→23:31)
[2019-02-06] MEDS: ALVIMOPAN 12 MG CAPSULE PO SCH ×2 (09:03→21:17)
[2019-02-06] MEDS: TRIAMTERENE-HCTZ 37.5-25MG 1 EACH TAB PO SCH (09:03)
[2019-02-06] MEDS: FAMOTIDINE 20 MG/2 ML VIAL IV SCH ×2 (09:03→21:12)
--- NOTE | 2019-02-06 11:39 | P.PN ---
<Shaniqua Chaidez - Last Filed: 02/06/19 11:34> Subjective Progress Note Date: 02/06/19 CHIEF COMPLAINT: colon polyp HISTORY OF PRESENT ILLNESS: Patient is s/p laparoscopic partial right colectomy. POD #2. Patient examined at the bedside. He reports abdominal pain is tolerable. Tolerating full liquid diet. Denies nausea or vomiting. Reports passing minimal flatus. Has been ambulating in the hallway. Vital signs stable. He is afebrile. PHYSICAL EXAM: VITAL SIGNS: Reviewed. GENERAL: Well-developed in no acute distress. HEENT: No sclera icterus. Extraocular movements grossly intact. Moist buccal mucosa. Head is atraumatic, normocephalic. ABDOMEN: Soft. Nondistended. Appropriate surgical tenderness. Incision sites clean dry intact. NEUROLOGIC: Alert and oriented. Cranial nerves II through XII grossly intact. ASSESSMENT: 1. Recurrent adenomatous colon polyp PLAN: -Advance diet to full liquid diet. Await bowel function -Pain control -Increase activity as tolerated -IS 10 times an hour Nurse practitioner note has been reviewed by physician. Signing provider agrees with the documented findings, assessment, and plan of care. Objective - Vital Signs Vital signs: Vital Signs Temp 98.9 F 02/06/19 07:00 Pulse 71 02/06/19 08:55 Resp 16 02/06/19 07:00 BP 129/79 02/06/19 08:55 Pulse Ox 97 02/06/19 07:00 Intake & Output 02/05/19 02/06/19 02/06/19 18:59 06:59 18:59 Intake Total 1000 1740 Output Total 4050 900 800 Balance -3050 840 -800 Intake: Intake, IV Titration 1000 1500 Amount D5-0.45% NaCl with KCl 1000 1500 20Meq/l 1,000 ml @ 125 mls/hr IV .Q8H [facility] Rx#: [id number] Oral 240 Output: Urine 4050 900 800 Uretheral (Mauricio) 1800 Other: Voiding Method Indwelling Catheter Toilet Toilet Urinal Urinal # Voids 2 200 - Labs CBC & Chem 7: 02/05/19 06:51 02/05/19 06:51 <Brayan Obando - Last Filed: 02/06/19 15:30> Subjective As above. Patient doing well. Continue advancing diet. Plan discharge tomorrow. Objective - Vital Signs Vital signs: Vital Signs Temp 98.4 F 02/06/19 14:34 Pulse 64 02/06/19 14:34 Resp 15 02/06/19 14:34 BP 138/76 02/06/19 14:34 Pulse Ox 97 02/06/19 14:34 Intake & Output 02/05/19 02/06/19 02/06/19 18:59 06:59 18:59 Intake Total 1000 1740 Output Total 4050 900 800 Balance -3050 840 -800 Weight 79.379 kg Intake: Intake, IV Titration 1000 1500 Amount D5-0.45% NaCl with KCl 1000 1500 20Meq/l 1,000 ml @ 125 mls/hr IV .Q8H [facility] Rx#: [id number] Oral 240 Output: Urine 4050 900 800 Uretheral (Mauricio) 1800 Other: Voiding Method Indwelling Catheter Toilet Toilet Urinal Urinal # Voids 2 200 - Labs CBC & Chem 7: 02/05/19 06:51 02/05/19 06:51 Assessment and Plan (1) Adenomatous colon polyp Current Visit: Yes Status: Acute Code(s): D12.6 - BENIGN NEOPLASM OF COLON, UNSPECIFIED SNOMED Code(s): 144113834
--- NOTE | 2019-02-06 12:52 | P.PN ---
Subjective Progress Note Date: 02/06/19 This is a 68-year-old male patient of Dr. Hendrix. with past medical history of hypertension,, Mnire's, gastroesophageal reflux disease. Patient recently seen at [facility] below for endoscopic mucosal resection of a polyp seen at the ileocecal valve. Patient had more than 1 endoscopic resection. Recent repeat colonoscopy showed persistent polypoid formation with induration at the base of the polyp. Biopsies are showing fragments of tubular adenoma. Patient has been brought in electively under Dr. Obando and underwent laparoscopic da Gemma assisted right colectomy with intracorporeal anastomosis. Patient is seen on postop day #1. Patient states that he did not sleep well due to pain and multiple interruptions. He is currently tolerating a liquid diet without nausea and vomiting. Abdominal pain is controlled. His Mauricio catheter was removed this morning. No bowel movement. He is reaching 3000 ML's on incentive spirometry. PT evaluation will be added. 02/06: The patient is today sitting in recliner and appears to be comfortable. Patient states that his pain is okay at this time. He has not had a bowel movement. Patient was up in the middle of the night urinating multiple times. No burning with urination. Patient is tolerating a full liquid diet. No nausea or vomiting. He is passing gas. Patient has been afebrile, heart rate 71, blood pressure 129/79, pulse ox 97% on room air Pathology report remains pending. Plan is to increase activity, continue incentive spirometry, diet has been advanced to full liquid diet. PT has recommended home with no requirement for home care. Review of Systems Constitutional: Denies chills, Denies fatigue, Denies fever, Denies poor appetite Eyes: denies blurred vision, denies pain Ears, nose, mouth and throat: Denies headache, Denies nasal congestion, Denies nasal discharge, Denies sore throat, Denies vertigo Cardiovascular: Denies chest pain, Denies decreased exercise tolerance, Denies dyspnea on exertion, Denies edema, Denies irregular heart beat, Denies leg edema, Denies lightheadedness, Denies shortness of breath, Denies syncope Respiratory: Denies cough, Denies cough with sputum, Denies dyspnea, Denies excessive sputum, Denies home oxygen, Denies wheezing Gastrointestinal: Reports abdominal discomfort, Denies diarrhea, Denies loss of appetite, Denies nausea, Denies vomiting Genitourinary: Denies dysuria, Denies urinary retention Musculoskeletal: Denies frequent falls, Denies gait dysfunction, Denies myalgias Integumentary: Denies pruritus, Denies rash Neurological: Denies change in mentation, Denies change in speech, Denies numbness, Denies weakness Psychiatric: Denies anxiety, Denies depression Endocrine: Denies fatigue, Denies weight change Objective - Vital Signs Vital signs: Vital Signs Temp 98.9 F 02/06/19 07:00 Pulse 71 02/06/19 08:55 Resp 16 02/06/19 07:00 BP 129/79 02/06/19 08:55 Pulse Ox 97 02/06/19 07:00 Intake & Output 02/05/19 02/06/19 02/06/19 18:59 06:59 18:59 Intake Total 1000 1740 Output Total 4050 900 Balance -3050 840 Intake: Intake, IV Titration 1000 1500 Amount D5-0.45% NaCl with KCl 1000 1500 20Meq/l 1,000 ml @ 125 mls/hr IV .Q8H [facility] Rx#: [id number] Oral 240 Output: Urine 4050 900 Uretheral (Mauricio) 1800 Other: Voiding Method Indwelling Catheter Toilet Toilet Urinal Urinal # Voids 2 200 - Exam Gen: This is a 68-year-old male. Patient is resting in recliner and appears to be comfortable and in no acute distress. HEENT: Head is atraumatic, normocephalic. Pupils equal, round. Sclerae is anicteric. NECK: Supple. No JVD. No lymphadenopathy. No thyromegaly. LUNGS: Clear to auscultation. No wheezes or rhonchi. No intercostal retractions. HEART: Regular rate and rhythm. No murmur. ABDOMEN: Soft. Bowel sounds are present. No masses. Mild generalized tenderness. Small surgical wounds with no signs of infection. EXTREMITIES: No pedal edema. No calf tenderness. Dorsalis pedis +2 bilaterally . NEUROLOGICAL: Patient is awake, alert and oriented x3. Cranial nerves 2 through 12 are grossly intact. - Labs CBC & Chem 7: 02/05/19 06:51 02/05/19 06:51 Assessment and Plan Plan: 1. Tubular adenoma status post laparoscopic da Gemma assisted right colectomy with intracorporeal anastomosis. Diet advanced to full liquid today. Continue incentive spirometry to reduce incidence of atelectasis and hospital-acquired pneumonia. Patient is on Entereg. Increase activity. 2. Hypertension. Resume Maxide 25 with parameters. 3. Mnire's, stable. 4. Gastroesophageal reflux disease. Pepcid 20 mg IV twice daily. 5. Glaucoma. Continue eyedrops. 6. DVT prophylaxis. Heparin subcu. Discharge plan: Most likely return home on Sunday. Impression and plan of care have been directed as dictated by the signing physician. Nerissa Moreno nurse practitioner acting as scribe for signing physician.
[2019-02-06] MEDS: LATANOPROST 0.005% OPHTH DROPS 2.5 ML BTL BOTH EYES SCH (21:11)
[2019-02-06 21:47] VITALS: RESP 18
[2019-02-07 07:18] LABS: Basophils % (A) 0 %; Eosinophils # (A) 0.2 k/uL (0-0.7); Eosinophils % (A) 2 %; HCT 36.5 % (39.0-53.0); HGB 12.5 gm/dL (13.0-17.5); Lymphocytes # (A) 2.6 k/uL (1.0-4.8); Lymphocytes % (A) 31 %; MCH 32.2 pg (25.0-35.0); MCHC 34.2 g/dL (31.0-37.0); MCV 94.2 fL (80.0-100.0); Mean Platelet Volume 7.3; Monocytes # (A) 0.5 k/uL (0-1.0); Monocytes % (A) 6 %; Neutrophils # (A) 4.9 k/uL (1.3-7.7); Neutrophils % (A) 59 %; Platelet Count 213 k/uL (150-450); RBC 3.87 m/uL (4.30-5.90); RDW 12.5 % (11.5-15.5); WBC 8.4 k/uL (3.8-10.6)
[2019-02-07 08:07] VITALS: BP 125/80; PULSE 88; TEMP 98.3
[2019-02-07] MEDS: LACTATED RINGERS 1,000 ML IV SCH (08:45)
[2019-02-07] MEDS: TRIAMTERENE-HCTZ 37.5-25MG 1 EACH TAB PO SCH (08:48)
[2019-02-07] MEDS: D5-0.45% NACL WITH KCL 20MEQ/L 1,000 ML IV SCH (08:49)
[2019-02-07] MEDS: FAMOTIDINE 20 MG/2 ML VIAL IV SCH (08:49)
[2019-02-07] MEDS: HEPARIN SODIUM,PORCINE 5,000 UNIT/ML 1 ML VIAL SQ SCH (08:49)
--- NOTE | 2019-02-07 12:05 | P.DS ---
<Shaniqua Chaidez - Last Filed: 02/07/19 12:04> Providers Expected date of discharge: 02/07/19 Hospital Course: 68-year-old male who underwent laparoscopic partial right colectomy with Dr. Obando. Patient is doing well postoperatively without any immediate complications. Pain controlled on oral medications. Tolerating diet without nausea or vomiting. Vital signs stable. He is stable for discharge home today. Please see EMR for further hospital course details. discharge diagnosis: 1. Recurrent adenomatous colon polyp Nurse practitioner note has been reviewed by physician. Signing provider agrees with the documented findings, assessment, and plan of care. Plan - Discharge Summary Discharge Rx Participant: Yes New Discharge Prescriptions: New Hydrocodone/Acetaminophen [[place] 5-325] 1 tab PO Q6HR PRN 3 Days #12 tab PRN Reason: Pain No Action Hyoscyamine Sulfate [Hyoscyamine Sulfate SL] 0.125 mg SL Q4H PRN PRN Reason: Pain Latanoprost Ophth [Xalatan 0.005%] 1 drop BOTH EYES HS Triamterene/Hydrochlorothiazid [Triamterene-Hctz 37.5-25 mg Tb] 1 tab PO QAM Cholecalciferol [Vitamin D3] 5,000 unit PO DAILY Discharge Medication List Hyoscyamine Sulfate [Hyoscyamine Sulfate SL] 0.125 mg SL Q4H PRN 02/15/15 [History] Cholecalciferol [Vitamin D3] 5,000 unit PO DAILY 02/04/18 [History] Latanoprost Ophth [Xalatan 0.005%] 1 drop BOTH EYES HS 02/04/18 [History] Triamterene/Hydrochlorothiazid [Triamterene-Hctz 37.5-25 mg Tb] 1 tab PO QAM 02/04/18 [History] Hydrocodone/Acetaminophen [[place] 5-325] 1 tab PO Q6HR PRN 3 Days #12 tab 02/07/19 [Rx] Follow up Appointment(s)/Referral(s): Brayan Obando MD [Medical Doctor] - 02/13/19 9:45 am Dawit Hendrix MD [Primary Care Provider] - 1 Week (Office will be contact with patient upon discharge to set up a follow up appointment) Patient Instructions/Handouts: Colectomy (DC) Activity/Diet/Wound Care/Special Instructions: No driving while taking [place] No lifting over 10 pounds You may shower. No soaking or tub baths Very light activity until you are reevaluated at your follow up appointment with your surgeon Discharge Disposition: HOME SELF-CARE <Brayan Obando - Last Filed: 02/07/19 13:37> Providers Date of admission: 02/04/19 10:31 Attending physician: Brayan Obando Consults: 02/04/19 17:02 Consult Physician Routine Consulting Provider: Dawit Hendrix Consult Reason/Comments: Medical management Do you want consulting provider notified?: Yes Primary care physician: Dawit Hendrix - Discharge Diagnosis(es) (1) Adenomatous colon polyp Current Visit: Yes Status: Acute Hospital Course: As above. Patient doing well. He did have a stool with some old blood in it. Hemoglobin has been stable. Plan discharge today. Follow-up one week.
[2019-02-07] MEDS ORDERED: ROPIVACAINE 5 MG/ML 30 ML VIAL ONE (12:14)
[2019-02-07] MEDS ORDERED: PROPOFOL 10 MG/ML 20 ML VIAL IV ONE (12:14)
[2019-02-07] MEDS ORDERED: fentaNYL (PF) 50 MCG/ML 2 ML AMP ONE (12:14)
[2019-02-07] MEDS ORDERED: HYDROmorphone (PF) 1 MG/ML ONE (12:14)
[2019-02-07] MEDS ORDERED: GLYCOPYRROLATE 0.2 MG/ML 2 ML VIAL ONE (12:14)
[2019-02-07] MEDS ORDERED: ESMOLOL 100 MG/10 ML VIAL ONE (12:14)
[2019-02-07] MEDS ORDERED: ROCURONIUM BROMIDE 10 MG/ML 10 ML VIAL IV ONE (12:14)
[2019-02-07] MEDS ORDERED: LIDOCAINE 1% INJ 10MG/ML (20 ML MDV) ONE (12:14)
[2019-02-07] MEDS ORDERED: NEOSTIGMINE 1 MG/ML 10 ML VIAL ONE (12:14)
[2019-02-07] MEDS ORDERED: DEXAMETHASONE SOD PHOSPHATE 4 MG/ML 1 ML VIAL ONE (12:14)
[2019-02-07] MEDS ORDERED: ePHEDrine SULFATE/0.9% NACL/PF 50 MG/5 ML SYRINGE IV ONE (12:14)
--- NOTE | 2019-02-07 12:14 | P.PN ---
Subjective Progress Note Date: 02/07/19 This is a 68-year-old male patient of Dr. Hendrix. with past medical history of hypertension,, Mnire's, gastroesophageal reflux disease. Patient recently seen at [facility] below for endoscopic mucosal resection of a polyp seen at the ileocecal valve. Patient had more than 1 endoscopic resection. Recent repeat colonoscopy showed persistent polypoid formation with induration at the base of the polyp. Biopsies are showing fragments of tubular adenoma. Patient has been brought in electively under Dr. Obando and underwent laparoscopic da Gemma assisted right colectomy with intracorporeal anastomosis. Patient is seen on postop day #1. Patient states that he did not sleep well due to pain and multiple interruptions. He is currently tolerating a liquid diet without nausea and vomiting. Abdominal pain is controlled. His Mauricio catheter was removed this morning. No bowel movement. He is reaching 3000 ML's on incentive spirometry. PT evaluation will be added. 02/06: The patient is today sitting in recliner and appears to be comfortable. Patient states that his pain is okay at this time. He has not had a bowel movement. Patient was up in the middle of the night urinating multiple times. No burning with urination. Patient is tolerating a full liquid diet. No nausea or vomiting. He is passing gas. Patient has been afebrile, heart rate 71, blood pressure 129/79, pulse ox 97% on room air Pathology report remains pending. Plan is to increase activity, continue incentive spirometry, diet has been advanced to full liquid diet. PT has recommended home with no requirement for home care. 02/07:the patient states he is doing well today. He is tolerating a low fiber diet without any nausea or vomiting. He was concerned that his stool was red but explained that this is to be expected. He states his stool this morning was soft and more solid than previous ones. His pain is currently controlled. His hemoglobin is 12.5. Anticipate discharge home later today. Review of Systems Constitutional: Denies chills, Denies fatigue, Denies fever, Denies poor appetite Ears, nose, mouth and throat: Denies headache, Denies nasal congestion, Denies nasal discharge, Denies sore throat, Denies vertigo Cardiovascular: Denies chest pain, Denies decreased exercise tolerance, Denies dyspnea on exertion, Denies edema, Denies irregular heart beat, Denies leg edema, Denies lightheadedness, Denies shortness of breath, Denies syncope Respiratory: Denies cough, Denies cough with sputum, Denies dyspnea, Denies excessive sputum, Denies home oxygen, Denies wheezing Gastrointestinal: Reports abdominal discomfort, Denies diarrhea, Denies loss of appetite, Denies nausea, Denies vomiting Genitourinary: Denies dysuria, Denies urinary retention Musculoskeletal: Denies frequent falls, Denies gait dysfunction, Denies myalgias Integumentary: Denies pruritus, Denies rash Neurological: Denies change in mentation, Denies change in speech, Denies numbness, Denies weakness Psychiatric: Denies anxiety, Denies depression Endocrine: Denies fatigue, Denies weight change Objective - Vital Signs Vital signs: Vital Signs Temp 98.3 F 02/07/19 07:00 Pulse 88 02/07/19 07:00 Resp 18 02/07/19 07:00 BP 125/80 02/07/19 07:00 Pulse Ox 96 02/07/19 07:00 Intake & Output 02/06/19 02/07/19 02/07/19 18:59 06:59 18:59 Intake Total 1200 200 Output Total 800 Balance -800 1200 200 Weight 79.379 kg Intake: Intake, IV Titration 1200 Amount D5-0.45% NaCl with KCl 1200 20Meq/l 1,000 ml @ 125 mls/hr IV .Q8H [facility] Rx#: [id number] Oral 200 Output: Urine 800 Other: Voiding Method Toilet Toilet Toilet Urinal Urinal Urinal # Voids 1 1 # Bowel Movements 1 1 - Exam Gen: This is a 68-year-old male. Patient is resting in recliner and appears to be comfortable and in no acute distress. HEENT: Head is atraumatic, normocephalic. Pupils equal, round. Sclerae is ani cteric. NECK: Supple. No JVD. No lymphadenopathy. No thyromegaly. LUNGS: Clear to auscultation. No wheezes or rhonchi. No intercostal retractions. HEART: Regular rate and rhythm. No murmur. ABDOMEN: Soft. Bowel sounds are present. No masses. No tenderness. Small surgical wounds with no signs of infection. EXTREMITIES: No pedal edema. No calf tenderness. Dorsalis pedis +2 bilaterally. NEUROLOGICAL: Patient is awake, alert and oriented x3. Cranial nerves 2 through 12 are grossly intact. - Labs CBC & Chem 7: 02/07/19 06:35 02/05/19 06:51 Labs: Abnormal Lab Results - Last 24 Hours (Table) 02/07/19 Range/Units 06:35 RBC 3.87 L (4.30-5.90) m/uL Hgb 12.5 L (13.0-17.5) gm/dL Hct 36.5 L (39.0-53.0) % Assessment and Plan Plan: 1. Tubular adenoma status post laparoscopic da Gemma assisted right colectomy with intracorporeal anastomosis. tolerating a low fiber diet. Continue incentive spirometry to reduce incidence of atelectasis and hospital-acquired pneumonia. Enteregdiscontinued. Increase activity. 2. Hypertension. Resume Maxide 25 with parameters. 3. Mnire's, stable. 4. Gastroesophageal reflux disease. Pepcid 20 mg IV twice daily. 5. Glaucoma. Continue eyedrops. 6. DVT prophylaxis. Heparin subcu. Discharge plan: home Impression and plan of care have been directed as dictated by the signing physician. Nerissa Moreno nurse practitioner acting as scribe for signing physician.
== END 2019-02-07 13:56 | disposition home or self-care (01) | DRG 331 ==
LOC: 2ORMAIN 10:31 → 4SSUR 17:04
PROVIDERS: ADMIT Surgery; ATTEND Surgery
PROC: 0DBF4ZZ Excision of Right Large Intestine, Percutaneous Endoscopic Approach (ICD-10-PCS; principal; 2019-02-05)
PROC: 8E0W4CZ Robotic Assisted Procedure of Trunk Region, Percutaneous Endoscopic Approach (ICD-10-PCS; 2019-02-05)
DX: D12.2 Benign neoplasm of ascending colon (principal); H91.90 Unspecified hearing loss, unspecified ear; I10 Essential (primary) hypertension; Z80.3 Family history of malignant neoplasm of breast; Z87.891 Personal history of nicotine dependence; Z86.010 Personal history of colon polyps; Z83.79 Family history of other diseases of the digestive system; Z81.8 Family history of other mental and behavioral disorders; Z90.49 Acquired absence of other specified parts of digestive tract; H81.09 Meniere's disease, unspecified ear; Z88.7 Allergy status to serum and vaccine; H40.009 Preglaucoma, unspecified, unspecified eye; K21.9 Gastro-esophageal reflux disease without esophagitis; Z79.899 Other long term (current) drug therapy
CPT/HCPCS: 64488; 80048; 85025; 86850; 86900; 86901; 88309; 94760

== ENCOUNTER → 2019-11-27 | Outpatient (CLI) | payer MEDICARE, OTHER, BC | END | disposition home or self-care (01) | LOC: LABWHC1 12:42 | PROVIDERS: ATTEND Internal Medicine | DX: Z20.828 Contact with and (suspected) exposure to other viral communicable diseases (principal) | CPT/HCPCS: U0003; C9803 ==

== ENCOUNTER 2020-04-21 08:57 | Day surgery (SDC) | payer MEDICARE, OTHER, BC ==
[2020-04-16 15:07] VITALS: BMI 25.0
[~2020-04-21 08:57] MED LIST changes: -ALVIMOPAN 12 MG CAPSULE PO ONE; -DEXAMETHASONE SOD PHOSPHATE 10 MG/ML 1 ML VIAL IV ONE; +LACTATED RINGERS 1,000 ML IV SCH; +LIDOCAINE 1% (10MG/ML) FOR IV START INTRADERMA PRN; -LIDOCAINE 1% 20 ML VIAL (10MG/ML) FOR IV START INTRADERMA PRN; -ONDANSETRON 4 MG/2 ML VIAL IVP ONE; -Pre Op ABX Message 1 EACH MISC MISCELLANE ONE; -metroNIDAZOLE-NS PMX 500 MG in SALINE 1 100ML.BAG IVPB ONE
[2020-04-21 10:02] VITALS: RESP 16; TEMP 98.3
[2020-04-21] MEDS ORDERED: PROPOFOL 10 MG/ML 20 ML VIAL IV ONE (10:27)
--- NOTE | 2020-04-21 10:40 | P.PCN ---
Date of Procedure: 04/21/20 Procedure(s) Performed: BRIEF HISTORY: Patient is a 69-year-old pleasant male scheduled for an elective colonoscopy as a part of evaluation of prior history of colon polyps. He had a large colon polyp in the rectosigmoid polyp which she underwent right hemicolectomy a year and a half ago. He scheduled for a surveillance colonoscopy today. PROCEDURE PERFORMED: Colonoscopy. PREOPERATIVE DIAGNOSIS: History of colon polyps. IV sedation per Anesthesia. PROCEDURE: After informed consent was obtained, the patient, was brought into the endoscopy unit. IV sedation was administered by Anesthesia under continuous monitoring. Digital rectal examination was normal. Initially the Olympus CF-160 flexible video colonoscope was then inserted in the rectum, gradually advanced into the right colon with ileocolic anastomosis was visualized and appeared normal. Mucosa of the transverse colon, descending colon, sigmoid colon, and rectum appeared normal. The left sided diverticulosis seen. Retroflexion was performed in the rectum and no lesions were seen. The patient tolerated the procedure well. IMPRESSION: Normal-appearing colon from rectum to right colon with ileocolic anastomosis was visualized and appeared normal Scattered sigmoid diverticulosis RECOMMENDATIONS: Findings of this examination were discussed with the patient as well as his family. He was advised to have a repeat surveillance colonoscopy in 3 years from now because of the prior history of colon polyps..
[2020-04-21 11:03] VITALS: BP 122/77; PULSE 54
== END 2020-04-21 11:19 | disposition home or self-care (01) ==
LOC: ORWHC2ENDO 08:57
PROVIDERS: ATTEND Internal Medicine Gastroenterology
DX: Z09 Encounter for follow-up examination after completed treatment for conditions other than malignant neoplasm (principal); Z86.010 Personal history of colon polyps; K57.30 Diverticulosis of large intestine without perforation or abscess without bleeding; Z90.49 Acquired absence of other specified parts of digestive tract
CPT/HCPCS: 45378; J2704

== ENCOUNTER → 2020-05-25 | Outpatient (CLI) | payer MEDICARE, OTHER, BC ==
--- NOTE | 2020-05-25 10:58 | CTL ---
EXAMINATION TYPE: CT Low Dose Lung DATE OF EXAM ORDERED: 05/25/2020 HISTORY: Personal history tobacco use. Lung cancer screening CT DLP: 65 mGycm Automated exposure control for dose reduction was used. SCREENING VISIT: Initial COMPARISON: None TECHNIQUE: Low dose computed tomography scan was performed through the chest at 1 mm thick sections a nd reconstructed images in the coronal plane at [address] DIAGNOSTIC QUALITY: Limited, but interpretable FINDINGS: LUNG NODULES: None. LUNGS: COPD: Severity: None Fibrosis: Severity: None Lymph nodes: None Other findings: None RIGHT PLEURAL SPACE: Effusion: None Calcification: None Thickening: None Pneumothorax: None LEFT PLEURAL SPACE: Effusion: None Calcification: None Thickening: None Pneumothorax: None HEART: Heart Size: Normal Coronary calcification: Mild Pericardial effusion: None OTHER FINDINGS: Upper abdomen: Right renal cyst is noted. Bony thorax: Normal Supraclavicular region: Normal Other: The ascending thoracic aorta at the level of the main pulmonary artery is 3.8 cm. The main pul monary artery the bifurcation is 3.1 cm. IMPRESSION: 1. No suspicious abnormality to suggest neoplasm. FOLLOW UP CT CHEST RECOMMENDATION: Follow-up low-dose CT chest one year CT LUNG RAD: 1
== END | disposition home or self-care (01) ==
LOC: RADCTMAIN 08:25
PROVIDERS: ATTEND Internal Medicine
DX: Z12.2 Encounter for screening for malignant neoplasm of respiratory organs (principal); F17.210 Nicotine dependence, cigarettes, uncomplicated
CPT/HCPCS: 71271

== ENCOUNTER → 2021-08-01 | Outpatient (CLI) | payer MEDICARE, OTHER ==
--- NOTE | 2021-08-01 19:12 | US ---
EXAMINATION TYPE: US carotid duplex BILAT DATE OF EXAM: 08/01/2021 COMPARISON: NONE CLINICAL HISTORY: 70-year-old male I65.23 CAROTID STENOSIS. TECHNIQUE: Carotid duplex ultrasound examination. Indirect Doppler criteria was utilized. FINDINGS: EXAM MEASUREMENTS: RIGHT: Peak Systolic Velocity (PSV) cm/sec ----- Right CCA: 87 ----- Right ICA: 94.4 ----- Right ECA: 104 ICA/CCA ratio: 1.0 RIGHT: End Diastole cm/sec ----- Right CCA: 19 ----- Right ICA: 36 ----- Right ECA: 15.6 LEFT: Peak Systolic Velocity (PSV) cm/sec ----- Left CCA: 107 ----- Left ICA: 78.1 ----- Left ECA: 106 ICA/CCA ratio: .7 LEFT: End Diastole cm/sec ----- Left CCA: 27.9 ----- Left ICA: 30.6 ----- Left ECA: 12.2 VERTEBRALS (direction of flow): Right Vertebral: Antegrade Left Vertebral: Antegrade Rhythm: Normal [employer] notes: No elevated velocities IMPRESSION: No hemodynamically significant internal carotid artery stenosis on either side. Criteria for Assigning % of Stenosis / Diameter reduction (Estimation based on the indirect measurements of the internal carotid artery velocities (ICA PSV). 1. Normal (no stenosis)=ICA PSV < 125 cm/s: ratio < 2.0: ICA EDV<40 cm/s. 2. Less than 50% stenosis=ICA PSV < 125 cm/s: ratio < 2.0: ICA EDV<40 cm/s. 3. 50 to 69% stenosis=ICA PSV of 125 to 230 cm/s: ration 2.0 ? 4.0: ICA EDV 40-100 cm/s. 4. Greater than 70% stenosis to near occlusion= ICA PSV > 230 cm/s: ratio > 4.0: ICA EDV > 100 cm/s. 5. Near occlusion= ICA PSV velocities may be low or undetectable: variable ratio and ICA EDV. 6. Total occlusion=unable to detect flow.
== END | disposition home or self-care (01) ==
LOC: RADUSWWP 10:52
PROVIDERS: ATTEND Internal Medicine
DX: I65.23 Occlusion and stenosis of bilateral carotid arteries (principal)
CPT/HCPCS: 93880

== ENCOUNTER → 2022-02-06 | Outpatient (CLI) | payer MEDICARE, OTHER ==
--- NOTE | 2022-02-06 12:06 | CA ---
Exercise Stress Test Report Name: Andrea Warner Exam Date: 02/06/2022 09:45 Exam Location: [facility] Stress Ht (in): 72 Wt (lb): 180 BSA: 2.04 Ordering Phys: Dawit Hendrix MD Referring Phys: Dawit Hendrix MD Technologist: Govind Hermosillo Age: 71 Gender: M : 1950 Procedure CPT: Indications: I21.29 STEMI INVOLVING OTH SITES ICD-10 Codes: Patient History: Hypercholesterolemia Medications: Meds past 24 hrs: Pretest Chest Pain: STRESS TEST Los Protocol Exercise Duration (min:sec): 06:[address] Depressions (mm): Angina Score: Jimenez Score: Resting HR (bpm): 52 Peak HR (bpm): 144 Resting BP (mmHg): 116 / 76 Peak BP (mmHg): 180 / 85 MPHR: 148 Target HR: 126 % MPHR: 97 METS: 8.0 Total Dose: Peak Dose: Atropine: Double Product: 14693 BP Response: Stress Termination: Reached target heart rate Stress Symptoms: No chest pain or symptoms Stress Summary: ECG ANALYSIS Resting ECG: Normal sinus rhythm poor R-wave progression suggestive of prior anteroseptal myocardial infarction is ST segment elevation in 1 and aVL Stress ECG: Patient exercised on Los protocol for a total of 6 and half minutes achieving 8 mets 85% of predicted maximal heart rate without chest pain or diagnostic ST segment depression CONCLUSIONS Average exercise tolerance Negative stress test by EKG criteria Cardiolite portion of the stress test will be reported separately Dr. Serafin Ramirez MD (Electronically Signed) Final Date: 06 February 2022 12:05
--- NOTE | 2022-02-06 14:03 | NM ---
EXAMINATION TYPE: NM stress cardiolite complete DATE OF EXAM: 02/06/2022 COMPARISON: NONE HISTORY: I21.29 STEMI INVOLVING OTH SITES TECHNIQUE: After the intravenous administration of 9.5 mCi Tc 99m Sestamibi - Rest images obtained 4 5 minutes post injection. The patient exercised using a FRANCI protocol and 1 minute prior to peak e xercise was injected with 24.1 mCi Tc 99m Sestamibi - Stress images obtained 20 minutes post injectio n. FINDINGS: Targeted heart rate was achieved during performance of the study. Review of stress and rest SPECT trent ges demonstrates mild decreased perfusion involving the cardiac septum on stress images which may ref lect stress-induced ischemia. No fixed defects seen. Gated analysis shows normal wall motion with an estimated left ventricular ejection fraction of 56 %. IMPRESSION: Small area of stress-induced ischemia cardiac septum difficult to exclude.
== END | disposition home or self-care (01) ==
LOC: RADNMMAIN 07:52
PROVIDERS: ATTEND Internal Medicine
DX: I21.29 ST elevation (STEMI) myocardial infarction involving other sites (principal); R94.39 Abnormal result of other cardiovascular function study
CPT/HCPCS: 93017; 78452; A9500

== ENCOUNTER → 2023-03-12 | Outpatient (CLI) | payer MEDICARE, OTHER ==
--- NOTE | 2023-03-12 11:22 | US ---
EXAMINATION TYPE: US carotid duplex BILAT DATE OF EXAM: 03/12/2023 COMPARISON: US 2021 CLINICAL INDICATION: Male, 72 years old with history of I65.23 CAROTID STENOSIS,BILATERAL; TECHNIQUE: Carotid duplex ultrasound examination. Indirect Doppler criteria was utilized. FINDINGS: EXAM MEASUREMENTS: RIGHT: Peak Systolic Velocity (PSV) cm/sec ----- Right CCA: 95.8 ----- Right ICA: 79.9 ----- Right ECA: 66.5 ICA/CCA ratio: 0.8 RIGHT: End Diastole cm/sec ----- Right CCA: 14.9 ----- Right ICA: 20.9 ----- Right ECA: 6.7 LEFT: Peak Systolic Velocity (PSV) cm/sec ----- Left CCA: 94.2 ----- Left ICA: 89.2 ----- Left ECA: 62.6 ICA/CCA ratio: 1.0 LEFT: End Diastole cm/sec ----- Left CCA: 18.0 ----- Left ICA: 14.9 ----- Left ECA: 7.5 VERTEBRALS (direction of flow): Right Vertebral: Antegrade Left Vertebral: Antegrade Rhythm: Normal No significant stenosis IMPRESSION: Less than 50% stenosis of the bilateral carotid bifurcations. Criteria for Assigning % of Stenosis / Diameter reduction (Estimation based on the indirect measurements of the internal carotid artery velocities (ICA PSV). 1. Normal (no stenosis)=ICA PSV < 125 cm/s: ratio < 2.0: ICA EDV<40 cm/s. 2. Less than 50% stenosis=ICA PSV < 125 cm/s: ratio < 2.0: ICA EDV<40 cm/s. 3. 50 to 69% stenosis=ICA PSV of 125 to 230 cm/s: ration 2.0 ? 4.0: ICA EDV 40-100 cm/s. 4. Greater than 70% stenosis to near occlusion= ICA PSV > 230 cm/s: ratio > 4.0: ICA EDV > 100 cm/s. 5. Near occlusion= ICA PSV velocities may be low or undetectable: variable ratio and ICA EDV. 6. Total occlusion=unable to detect flow.
== END | disposition home or self-care (01) ==
LOC: RADUSWWP 10:48
PROVIDERS: ATTEND Internal Medicine
DX: I65.23 Occlusion and stenosis of bilateral carotid arteries (principal)
CPT/HCPCS: 93880

== ENCOUNTER 2023-05-02 06:55 | Day surgery (SDC) | payer MEDICARE, OTHER ==
[2023-05-02] MEDS ORDERED: ONDANSETRON 4 MG/2 ML VIAL IVP PRN (07:00)
[2023-05-02] MEDS: LACTATED RINGERS 1,000 ML IV ONE (07:40)
[2023-05-02] MEDS ORDERED: PROPOFOL 10 MG/ML 20 ML VIAL IV ONE (07:58)
[2023-05-02 08:03] VITALS: RESP 16; TEMP 97.2
--- NOTE | 2023-05-02 08:24 | P.PCN ---
Date of Procedure: 05/02/23 Procedure(s) Performed: BRIEF HISTORY: Patient is a 72-year-old pleasant white male scheduled for an elective colonoscopy as a part of evaluation of prior history of colon polyps. He had prior colon resection for history of ileocecal valve polyp 5 years ago. Last colonoscopy was 3 years ago. PROCEDURE PERFORMED: Colonoscopy. PREOPERATIVE DIAGNOSIS: He stated of colon polyps.. IV sedation per Anesthesia. PROCEDURE: After informed consent was obtained, the patient, was brought into the endoscopy unit. IV sedation was administered by Anesthesia under continuous monitoring. Digital rectal examination was normal. Initially the Olympus CF-160 flexible video colonoscope was then inserted in the rectum, gradually advanced into the right colon without any difficulty. Careful examination was performed as the scope was gradually being withdrawn. Because of the left colic anastomosis appeared normal. The ascending colon, transverse colon, descending colon, sigmoid colon, and rectum appeared normal. At her sigmoid diverticulosis. Retroflexion was performed in the rectum and no lesions were seen. The patient tolerated the procedure well. IMPRESSION: Normal-appearing colon from rectum to right right colon with normal ileocolic anastomosis with no evidence of colorectal neoplasia Scattered sigmoid diverticulosis. RECOMMENDATIONS: Findings of this examination were discussed with the patient as well as his family. He was advised to have a repeat colonoscopy in 5 years because of the prior history of colon polyps...
[2023-05-02 09:17] VITALS: BP 137/81; PULSE 60
== END 2023-05-02 09:01 ==
LOC: ORWHC2ENDO 06:55
PROVIDERS: ATTEND Internal Medicine Gastroenterology
DX: Z12.11 Encounter for screening for malignant neoplasm of colon (principal); K57.30 Diverticulosis of large intestine without perforation or abscess without bleeding; I10 Essential (primary) hypertension; E78.5 Hyperlipidemia, unspecified; K21.9 Gastro-esophageal reflux disease without esophagitis; Z87.891 Personal history of nicotine dependence; Z86.010 Personal history of colon polyps; Z79.899 Other long term (current) drug therapy; Z90.49 Acquired absence of other specified parts of digestive tract
CPT/HCPCS: J2704; G0105

== ENCOUNTER → 2023-08-07 | Outpatient (CLI) | payer MEDICARE, OTHER ==
--- NOTE | 2023-08-07 11:44 | BD ---
EXAMINATION TYPE: Axial Bone Density DATE OF EXAM: 08/07/2023 CLINICAL HISTORY: 72 years old Male. ICD-10 CODE: M85.80 OSTEOPENIA Height: 5 ft 10 1/4 in Weight: 171 FRAX RISK QUESTIONS: Alcohol (3 or more units per day): no Family History (Parent hip fracture): no Glucocorticoids (More than 3mos): no (Ex: prednisone, prednisolone, methylprednisolone, dexamethasone, and hydrocortisone). History of Fracture in Adulthood: no Secondary Osteoporosis: 1. Type 1 Diabetes: no 2. Hyperthyroidism: no 3. Menopause before 45: n/a 4. Malnutrition: no 5. Chronic liver disease: no Rheumatoid Arthritis: no Current Tobacco Use: no RISK FACTORS HISTORY OF: Surgery to Spine/Hip(right/left)/Wrist (right/left): no MEDICATIONS: Thyroid Medications: none Osteoporosis Medications: EXAM MEASUREMENTS: Bone mineral densitometry was performed using the [employer] System. Bone mineral density as measured about the Lumbar spine is: ----- L1-L4(G/cm2): 1.078 T Score Values are as follows: ----- L1: -2.5 ----- L2: -0.8 ----- L3: 0.0 ----- L4: -0.4 ----- L1-L4: -0.8 Z Score Values are as follows: ----- L1: -2.2 ----- L2: -0.5 ----- L3: 0.2 ----- L4: -0.2 ----- L1-L4: -0.6 prev long ago Bone mineral density about the R hip (g/cm2): 1.026 Bone mineral density about the L hip (g/cm2): 0.978 T Score values are as follows: -----R Neck: -0.1 -----L Neck: -0.4 -----R Total: -0.3 -----L Total: -0.8 Z Score values are as follows: -----R Neck: 1.0 -----L Neck: 0.6 -----R Total: -0.1 -----L Total: -0.5 prev long ago FRAX%s: The graph provided illustrates a 5.4 % chance for a major osteoporotic fx and a 1.1 % chance for the hips probability for fx in 10 years time. IMPRESSION: Normal (Values between +1 and -1 indicate normal bone mass). Consider repeating this study in 5 year s or sooner if there is some new clinical indication. NOTE: T-SCORE=SD OF THE YOUNG ADULT MEAN.
== END | disposition home or self-care (01) ==
LOC: RADBDWWP 07:08
PROVIDERS: ATTEND Internal Medicine
DX: M81.0 Age-related osteoporosis without current pathological fracture (principal); M85.80 Other specified disorders of bone density and structure, unspecified site
CPT/HCPCS: 77080

== ENCOUNTER → 2023-10-08 | Outpatient (CLI) | payer MEDICARE, OTHER ==
--- NOTE | 2023-11-05 15:36 | MR ---
Site ID synapse default Patient Andrea Warner T ID [id number] 1950 Age/Gender: 72Y, M Order # N/A Procedure MRI BRAIN & IAC W/WO CONTRAST Date 10/08/2023 6:53:48 AM EXAMINATION TYPE: MR brain and iac wo/w con DATE OF EXAM: 10/20/2023 TECHNIQUE: INDICATION: Patient age: Male; 72 year old; Reason for study: Left-sided hearing loss COMPARISON: CT brain 08/28/2012 TECHNIQUE: Multi planar, multi sequence imaging was performed through the brain. Specialized thin s equences were obtained through the internal auditory canals. Pre-and post gadolinium sequences were obtained as well after administration of 8 cc of Gadavist. FINDINGS: The edward-white junctions, ventricular system, basal cisterns appear unremarkable. Diffusi on-weighted imaging shows no evidence of restricted diffusion. Patchy areas of high T2/FLAIR signal intensity are seen within the periventricular and subcortical white matter bilaterally. After admini stration of gadolinium, no abnormal enhancement is seen. Age-appropriate cerebral parenchymal volume. The internal auditory canal sequences demonstrate a vascular loop of the right anterior-inferior cere bellar artery, proximal to the right ICA that extends to less than 50% of the canal. The 7th cranial nerves, 8 cranial nerves, and cerebellar pontine angles appear unremarkable. After the administratio n gadolinium, no abnormal enhancement is seen within the internal auditory canals. Bilateral aphakia. IMPRESSION: 1. No evidence of intracranial mass nor acute/subacute CVA. 2. Nonspecific white matter changes likely related to chronic small vessel ischemic disease. 3. No evidence of left internal auditory canal amount. 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
== END | disposition home or self-care (01) ==
LOC: RADMRIMAIN 07:32
PROVIDERS: ATTEND Otolaryngology
DX: H90.A22 Sensorineural hearing loss, unilateral, left ear, with restricted hearing on the contralateral side (principal)
CPT/HCPCS: 70553; A9585